=== PATIENT | female | born 1950 | race Caucasian/White ===

== ENCOUNTER 2017-07-06 15:35 | Emergency (ER) | payer MEDICARE, BC ==
[2017-07-06 16:14] VITALS: BP 164/73
--- NOTE | 2017-07-06 17:25 | EDM.PDOC ---
ED HPI GENERAL MEDICAL PROBLEM - General Chief Complaint: Upper Extremity Injury/Pain Stated Complaint: RIGHT THUMB PAIN Time Seen by Provider: 07/06/17 16:22 Source of Information: Reports: Patient History Limitations: Reports: No Limitations - History of Present Illness INITIAL COMMENTS - FREE TEXT/NARRATIVE: The patient presents with right thumb pain. This started a couple days ago. She did not fall or jam her thumb. She did empty 200 pales of grain into a drill. She has no fever or chills. She is right handed. Onset: Gradual Duration: Day(s): (2) Location: Reports: Upper Extremity, Right (Thumb) Quality: Reports: Sharp Severity: Moderate Improves with: Reports: Immobilization Worsens with: Reports: Movement Context: Reports: Activity (Unloading pales of grain) Associated Symptoms: Reports: No Other Symptoms Right Hand Pain Score (Numeric/FACES): 10 - Related Data Allergies Allergy/AdvReac Type Severity Reaction Status Date / Time Penicillins Allergy Cannot Verified 07/06/17 16:08 Remember Home Meds: Home Meds Charito/Cell/Lipas/Malt/Prt/Lac/in [Digestive Enzymes Capsule] 2 cap PO DAILY [History] Calcium/Magnesium [Calcium with Magnesium Tab] 1 tab PO DAILY 03/21/16 [History] Cholecalciferol (Vitamin D3) [Vitamin D3] 1 tab PO DAILY 03/21/16 [History] FLUoxetine [PROzac] 1 cap PO DAILY 03/21/16 [History] Ubidecarenone [Coq-10] 1 cap PO DAILY 03/21/16 [History] Warfarin [Coumadin] 7.5 mg PO MOWEFR 03/21/16 [History] Hydrocodone/Acetaminophen [[place] 5-325] 1 tab PO Q4H PRN #30 tablet 03/22/16 [Rx ] Alpha Lipoic Acid 600 mg PO DAILY 07/06/17 [History] Warfarin [Coumadin] 5 mg PO SUTUTHSA 07/06/17 [History] Past Medical History HEENT History: Reports: None Cardiovascular History: Reports: High Cholesterol Other Cardiovascular History: dvt Respiratory History: Reports: None, PE Gastrointestinal History: Reports: None [employer] History: Reports: None Neurological History: Reports: None Psychiatric History: Reports: Depression Endocrine/Metabolic History: Reports: None Hematologic History: Reports: None Immunologic History: Reports: None Oncologic (Cancer) History: Reports: None Dermatologic History: Reports: None - Past Surgical History Head Surgeries/Procedures: Reports: None Female Surgical History: Reports: Hysterectomy, Oophorectomy Musculoskeletal Surgical History: Reports: Other (See Below) Social & Family History - Tobacco Use Smoking Status *Q: Never Smoker - Caffeine Use Caffeine Use: Reports: None Review of Systems - Review of Systems Review Of Systems: See Below Constitutional: Reports: No Symptoms Eyes: Reports: No Symptoms Ears: Reports: No Symptoms Nose: Reports: No Symptoms Mouth/Throat: Reports: No Symptoms Respiratory: Reports: No Symptoms Cardiovascular: Reports: No Symptoms GI/Abdominal: Reports: No Symptoms Genitourinary: Reports: No Symptoms Musculoskeletal: Reports: Other (Right thumb pain) ED EXAM, GENERAL - Physical Exam Exam: See Below Exam Limited By: No Limitations General Appearance: Alert, No Apparent Distress Ears: Normal External Exam Nose: Normal Inspection Throat/Mouth: Normal Inspection Head: Atraumatic, Normocephalic Neck: Normal Inspection Respiratory/Chest: No Respiratory Distress Extremities: Other (Pain upon palpation and edema to the dordal aspect of her right thumb with some mild erythema. Good capillary refill distall and sensation) ED TRAUMA EXTREMITY PROCEDURES - Splinting Right Upper Extremity Splint Site: Thumb Pre-Procedure NV Status: Normal Post-Procedure NV Status: Normal Splint Material: Fiberglass Splint Design: Thumb Spica Applied & Form Fitted By: Provider Provider Post-Splint Application NV Check: NV Status Normal, Good Position Complications: No Course - Vital Signs Last Recorded V/S: Last Vital Signs Temp 98.7 F 07/06/17 16:11 Pulse 52 L 07/06/17 16:11 Resp 16 07/06/17 16:11 BP 164/73 H 07/06/17 16:11 Pulse Ox 98 07/06/17 16:11 - Orders/Labs/Meds Orders: Active Orders 24 hr Category Date Time Status Fingers Thumb Rt F5 [CR] Stat Exams 07/06/17 16:39 Taken - Re-Assessments/Exams Free Text/Narrative Re-Assessment/Exam: 07/06/17 17:23 I did an x-ray that shows some mild arthritis. I feel she has tenosynavitis. I put her in a splint. I will discharge her home. Departure - Departure Time of Disposition: 17:25 Disposition: Home, Self-Care 01 Condition: Good Clinical Impression: Tenosynovitis of thumb - Discharge Information Referrals: PCP,Not In Area [Primary Care Provider] - Nahum Watt MD [Physician] - 1 Week Additional Instructions: Try to ice your thumb for 15 minutes 3 times per day for 2 days. Wear the splint for comfort for a week. You may have a dose of aleve daily for a couple days but no more than that. Follow up with Dr Watt in 1 week if you are not better. Please return if you are worse. - My Orders Last 24 Hours: My Active Orders 07/06/17 16:39 Fingers Thumb Rt F5 [CR] Stat - Assessment/Plan Last 24 Hours: My Active Orders 07/06/17 16:39 Fingers Thumb Rt F5 [CR] Stat
--- NOTE | 2017-07-08 08:36 | CR ---
Right thumb: Three views of the right thumb were obtained. Comparison: No prior thumb exam. Bony structures are slightly osteopenic. Focal lucency is seen on one view within the base of the proximal phalanx which is not identified on other views and most likely is artifact. No discrete fracture or other bony abnormality is seen. Impression: 1. Incidental findings as noted above. Nothing acute is seen. If patient has persistent symptoms, recommend follow-up study in 10-14 days. Diagnostic code #3
== END 2017-07-06 17:30 | disposition home or self-care (01) ==
LOC: JD.ED 15:35
DX: M65.841 Other synovitis and tenosynovitis, right hand (principal); E78.00 Pure hypercholesterolemia, unspecified; Z88.0 Allergy status to penicillin; Z79.899 Other long term (current) drug therapy
CPT/HCPCS: 29125; 73140-26-F5; 73140-F5; 99284-25